=== PATIENT | female | born 1960 | race Caucasian/White ===

== ENCOUNTER 2018-02-16 09:24 | Emergency (ER) | payer OTHER ==
[2018-02-16 09:45] VITALS: BP 110/71
--- NOTE | 2018-02-16 12:31 | UC ---
Respiratory Complaint HPI - HPI Summary HPI Summary: Patient is a 57-year-old female with a 2 to three-day history of cough sore throat and nasal congestion. Her symptoms started with a throat sore throat and the sore throat remains her worst symptom. She is able to eat and drink okay. She denies any chest pain. - History of Current Complaint Chief Complaint: UCRespiratory Stated Complaint: SORE THROAT,SHORTNESS OF BREATH Time Seen by Provider: 02/16/18 12:13 Hx Obtained From: Patient Onset/Duration: Sudden Onset, Gradual Onset, Lasting Minutes Timing: Constant Severity Initially: Mild Severity Currently: Moderate Pain Intensity: 8 Pain Scale Used: 0-10 Numeric Character: Cough: Nonproductive Aggravating Factors: Nothing Alleviating Factors: Nothing Associated Signs And Symptoms: Positive: Nasal Congestion - Allergies/Home Medications Allergies/Adverse Reactions: Allergies Allergy/AdvReac Type Severity Reaction Status Date / Time No Known Allergies Allergy Verified 02/16/18 09:40 Home Medications: Home Medications Aspirin EC TAB* [Ecotrin EC Low Dose 81 MG*] 81 mg PO DAILY 02/16/18 [History Confirmed 02/16/18] Levothyroxine TAB* [Synthroid TAB*] 50 mcg PO DAILY 02/16/18 [History Confirmed 02/16/18] Metoprolol Succinate XL TAB* [Toprol XL TAB*] 25 mg PO DAILY 02/16/18 [History Confirmed 02/16/18] PMH/Surg Hx/FS Hx/Imm Hx Previously Healthy: Yes Cardiovascular History: Hypertension, Other Other Cardiovascular History: dysrrhymia - Surgical History Surgical History: None - Family History Known Family History: Positive: Hypertension - Social History Alcohol Use: Occasionally Substance Use Type: None Smoking Status (MU): Never Smoked Tobacco Review of Systems All Other Systems Reviewed And Are Negative: Yes Constitutional: Positive: Negative Skin: Positive: Negative Eyes: Positive: Negative ENT: Positive: Sore Throat, Nasal Discharge Respiratory: Positive: Cough Cardiovascular: Positive: Negative Gastrointestinal: Positive: Negative Genitourinary: Positive: Negative Motor: Positive: Negative Neurovascular: Positive: Negative Musculoskeletal: Positive: Negative Neurological: Positive: Negative Psychological: Positive: Negative Physical Exam Triage Information Reviewed: Yes Appearance: Well-Appearing, No Pain Distress, Well-Nourished Vital Signs: Initial Vital Signs Temp 98.3 F 02/16/18 09:37 Pulse 70 02/16/18 09:37 Resp 16 02/16/18 09:37 BP 110/71 02/16/18 09:37 Pulse Ox 100 02/16/18 09:37 Vital Signs Reviewed: Yes Eyes: Positive: Conjunctiva Clear ENT: Positive: Pharyngeal erythema, Nasal congestion, TMs normal, Uvula midline. Negative: Nasal drainage, Tonsillar swelling, Tonsillar exudate, Trismus, Muffled voice, Hoarse voice, Dental tenderness, Sinus tenderness Neck: Positive: Supple, Nontender, No Lymphadenopathy Respiratory: Positive: Lungs clear, Normal breath sounds, No respiratory distress Cardiovascular: Positive: RRR, No Murmur Musculoskeletal: Positive: ROM Intact, No Edema Neurological: Positive: Alert Psychological Exam: Normal Skin Exam: Normal UC Diagnostic Evaluation - Laboratory O2 Sat by Pulse Oximetry: 100 - normal/not hypoxic Diagnostic Studies Comment: strep (-) Respiratory Course/Dx - Differential Dx/Diagnosis Provider Diagnosis: Upper respiratory infection, Pharyngitis Discharge - Sign-Out/Discharge Documenting (check all that apply): Patient Departure All imaging exams completed and their final reports reviewed: No Studies - Discharge Plan Condition: Stable Disposition: HOME Prescriptions: Benzonatate CAP* [Tessalon CAP*] 100 - 200 mg PO TID PRN #[id number] cap PRN Reason: Cough Patient Education Materials: Upper Respiratory Infection (ED) Referrals: No Primary Care Phys,NOPCP [Primary Care Provider] - Additional Instructions: rest aleve 1-2 pills twice daily with food for pain recheck for new or worsening symptoms or if not better in 3-4 days - Billing Disposition and Condition Condition: STABLE Disposition: Home
== END 2018-02-16 12:42 | disposition home or self-care (01) ==
LOC: UCCORT 09:24
DX: J06.9 Acute upper respiratory infection, unspecified (principal); J02.9 Acute pharyngitis, unspecified; I10 Essential (primary) hypertension
CPT/HCPCS: 87651; 99212; G0463